=== PATIENT | female | born 1975 | race Hispanic/Latino ===

== ENCOUNTER 2017-08-16 21:34 | Emergency (ER) | payer BC ==
[~2017-08-16] VITALS: Ht 160 cm; Wt 96.2 kg
[2017-08-16] MEDS ORDERED: NIFEDIPINE 10 MG CAP PO ONE (22:00)
[2017-08-16] MEDS ORDERED: ASPIRIN 81 MG CHEW TAB PO ONE (22:00)
[2017-08-16 22:13] LABS: BASOPHILS # (AUTO) 0.1 (0.0-0.1); BASOPHILS % 0.8 % (0.0-1.0); EOSINOPHILS # (AUTO) 0.4 (0.0-0.4); EOSINOPHILS % 4.6 % (0.0-6.0); HEMATOCRIT 39.4 % (34.2-44.1); HEMOGLOBIN 12.7 g/dL (12.0-16.0); LYMPHOCYTES # (AUTO) 3.9 (1.0-3.2); LYMPHOCYTES % 42.7 % (18.0-39.1); MEAN CORPUSCULAR HEMOGLOBIN 25.4 pg (28-32); MEAN CORPUSCULAR HGB CONC 32.2 g/dL (31-35); MEAN CORPUSCULAR VOLUME 78.8 fL (81-99); MONOCYTES # (AUTO) 0.6 (0.2-0.8); MONOCYTES % 6.5 % (4.4-11.3); NEUTROPHILS # (AUTO) 4.2 (2.1-6.9); NEUTROPHILS % 45.3 % (38.7-80.0); PLATELET COUNT 332 x10e3/uL (140-360); RED CELL DISTRIBUTION WIDTH 13.6 % (11.7-14.4)
[2017-08-16 22:21] LABS: BILIRUBIN,URINE NEGATIVE (NEGATIVE); COLOR,URINE YELLOW (YELLOW); KETONES,URINE NEGATIVE (NEGATIVE); LEUKOCYTE ESTERASE ,URINE NEGATIVE (NEGATIVE); NITRITE,URINE NEGATIVE (NEGATIVE); PROTEIN,URINE DIPSTICK NEGATIVE (NEGATIVE); URINE UROBILINOGEN 0.2 mg/dL (0.2 - 1)
[2017-08-16 22:24] LABS: CLARITY,URINE SL CLOUDY (CLEAR)
[2017-08-16 22:26] LABS: AMPHETAMINES SCREEN,URINE NEGATIVE (NEGATIVE); BENZODIAZEPINES SCREEN,URINE NEGATIVE (NEGATIVE); PHENCYCLIDINE SCREEN,URINE NEGATIVE (NEGATIVE); PREGNANCY TEST, URINE NEGATIVE (NEGATIVE)
[2017-08-16 22:32] LABS: ALANINE AMINOTRANSFERASE 97 IU/L (0-55); ALBUMIN 3.7 g/dL (3.5-5.0); ALBUMIN/GLOBULIN RATIO 0.8 (0.8-2.0); ALKALINE PHOSPHATASE 108 IU/L (40-150); ANION GAP 14.4 mmol/L (8-16); BLOOD UREA NITROGEN 11 mg/dL (7-26); BUN/CREATININE RATIO 12 (6-25); CARBON DIOXIDE 23 mmol/L (22-29); CHLORIDE 104 mmol/L (98-107); CREATINE KINASE 37 IU/L (29-168); CREATININE, SERUM 0.89 mg/dL (0.57-1.11); EST GLOMERULAR FILTRATION RATE > 60 ML/MIN (60-); GLUCOSE 264 mg/dL (74-118); POTASSIUM 3.4 mmol/L (3.5-5.1); SODIUM 138 mmol/L (136-145)
[2017-08-16 22:40] LABS: EPITHELIAL CELLS,URINE FEW /LPF; MUCUS,URINE FEW (RARE); RBC,URINE 0-5 /HPF (0-5); WBC,URINE (MAN) 0-5 /HPF (0-5)
--- NOTE | 2017-08-16 22:40 | Diagnostic Imaging Report ---
EXAMINATION: CHEST SINGLE (PORTABLE) INDICATION: Chest pain COMPARISON: None FINDINGS: TUBES and LINES: None. LUNGS: Lungs are not well inflated. Lungs are clear. There is no evidence of pneumonia or pulmonary edema. PLEURA: No pleural effusion or pneumothorax. HEART AND MEDIASTINUM: The cardiomediastinal silhouette is unremarkable. BONES AND SOFT TISSUES: No acute osseous lesion. Soft tissues are unremarkable. UPPER ABDOMEN: No free air under the diaphragm. IMPRESSION: No acute thoracic abnormality. Signed by: Dr. Toby Cervantes M.D. on 08/16/2017 10:37 PM
[2017-08-16 23:02] LABS: FREE THYROXINE INDEX 2.3769 (1.4-3.8); THYROID STIMULATING HORMONE 7.524 uIU/mL (0.350-4.940)
[2017-08-16] MEDS ORDERED: CLONIDINE HCL 0.1 MG TAB PO ONE (23:45)
--- NOTE | 2017-08-17 00:36 | Diagnostic Imaging Report ---
EXAM: CT Chest WITH contrast 08/16/2017 11:35 PM INDICATION: Shortness of breath, pulmonary embolism COMPARISON: None TECHNIQUE: Chest was scanned utilizing a multidetector helical scanner from the lung apex through the level of the adrenal glands without administration of IV contrast. Coronal and sagittal reformations were obtained. Routine protocol was performed. IV CONTRAST: 100 mL of Isovue-300 RADIATION DOSE: Total DLP: 538.18 mGy*cm Estimated effective dose: (DLP x 0.014 x size factor) mSv COMPLICATIONS: None FINDINGS: LINES/ TUBES: None. LUNGS AND AIRWAYS: The lungs are unremarkable. Airways are normal. PLEURA: The pleural spaces are clear. HEART AND MEDIASTINUM: The thyroid gland is normal. No mediastinal, hilar or axillary lymphadenopathy. The heart is normal in size.. There is no pericardial effusion. UPPER ABDOMEN: Limited non-contrast views of the upper abdomen show no abnormality within the visualized spleen, pancreas, or kidneys. The adrenal glands are normal. Mild hepatic steatosis. BONES: The visualized bony thorax is within normal limits. SOFT TISSUES: Unremarkable. IMPRESSION: 1. No evidence of acute intrathoracic abnormality, specifically, no pulmonary embolism visualized. 2. Mild hepatic steatosis Signed by: Dr. Toby Cervantes M.D. on 08/17/2017 12:32 AM
[2017-08-17] MEDS ORDERED: CLONIDINE HCL 0.1 MG TAB PO ONE (01:00)
[2017-08-17] MEDS ORDERED: CLONIDINE HCL 0.1 MG TAB ONE (01:16)
[2017-08-17 02:52] VITALS: BP 171/101
[2017-08-17] MEDS ORDERED: SODIUM CHLORIDE 0.9% 50ML 50 ML ONE (04:51)
[2017-08-17] MEDS ORDERED: IOPAMIDOL 370 MG/ML 200 ML INFUS..BTL INJ ONE (04:52)
== END 2017-08-17 03:00 | disposition home or self-care (01) ==
LOC: ER 21:34
DX: R07.89 Other chest pain (principal); I10 Essential (primary) hypertension; E11.9 Type 2 diabetes mellitus without complications; Z82.49 Family history of ischemic heart disease and other diseases of the circulatory system
CPT/HCPCS: 36415; 71045; 71260; 80053; 80307; 81001; 81025; 82550; 82553; 84436; 84443; 84479; 84484; 85025; 85379; 87086; 93005; 99284; Q9967

== ENCOUNTER 2018-10-19 01:20 | Emergency (ER) | payer BC ==
[~2018-10-19] VITALS: Ht 160 cm; Wt 99.1 kg
--- OUTSIDE RECORDS SUMMARY | 2018-10-19 01:23 | XMS REPORT ---
[facility] Address Unknown Phone Unavailable Care Team Providers Care Science Faculty Member Name Role Phone UNKNOWN, REFFERING PP Unavailable [place] GARCIA Unavailable Unavailable [place] BARRIENTOS Unavailable Unavailable Payers Payer Name Policy Type Policy Number Effective Date Expiration Date Problems This patient has no known problems. Allergies, Adverse Reactions, Alerts Allergy Name Allergy Type Status Severity Reaction(s) Onset Date Inactive Date Treating Clinician Comments No Known Allergies DA Active U 2013-08-16 00:00:00 Medications This patient has no known medications. Encounters Start Date/Time End Date/Time Encounter Type Admission Type Attending Clinicians Care Facility Care Department Encounter ID 2017-08-23 10:42:00 2017-08-23 10:42:00 Emergency E [facility] GARCIA [facility] MED [id number] Results Test Description Test Time Test Comments Text Results Atomic Results Result Comments LIPID PROFILE (CORONARY RISK) 2018-10-12 05:56:00 TRIGLYCERIDES (test code=TRIG) 109 mg/dL 20-150 CHOLESTEROL (test code=CHOL) 180 mg/dL 0-200 CHOLESTEROL/HDL RATIO (test code=CHOLHDL) 3.0 RATIO 0-4.9 RISK ASSOCIATED WITH CHOL/HDL RATIOS: Risk Male Female1/2 AVERAGE 3.43 3.27AVERAGE 4.97 4.442X AVERAGE 9.55 7.053X AVERAGE 23.39 11.04 REFERENCE VALUE IS RELATED TO RISK LEVELS ASRECOMMENDED BY THE DONNY. HEART, LUNG, AND BLOOD INST. HDL CHOLESTEROL (test code=HDL) 48 mg/dL 40-60 LIPOPROTEIN LDL (test code=LDL) 94 mg/dL 100-129 Reference Interval: mg/dL mmol/L Optimal <100 <2.6Near/above optimal 100-129 2.6- 3.3Borderline High 130-159 3.4-4.1High 160-189 4.1-4.9Very High >=190 >=4.9=========This LDL result is a direct measurement.========= [id number] 05:29:00* Test Item Value Reference Range Comments GLYCOSYLATED HEMOGLOBIN (HA1C) (test code=GLYHGB) 8.7 % HbA1 4.8-6.0 ESTIMATED AVERAGE GLUCOSE (test code=EAG) 203 MG/DL [id number] 05:29:00* Test Item Value Reference Range Comments TROPONIN-I (test code=TROPI) <0.015 ng/mL 0-0.045 COMMENTS TO CARDIAC SURGEON: COLLECT 3 HOURS AFTER PREVIOUS [id number] 02:07:00* Test Item Value Reference Range Comments TROPONIN-I (test code=TROPI) <0.015 ng/mL 0-0.045 COMMENTS TO CARDIAC SURGEON: COLLECT 3 HOURS AFTER PREVIOUS SAMPLE- XR CHEST 1 [id number] 17:48:00 Name: CAITLYN ALANIS [facility] : 1975 Age/S:42 /F [address] [facility] Unit#:[id number] Loc: [place] [address] Phys: Cecelia Chisholm MD Dis Date: PHONE #: [phone] Status: REG ER FAX #: [phone] Exam Date: 10/11/2018 Reason: CHEST PAIN EXAMS: CPT CODE: [id number] XR CHEST 1 V [id number] REASON FOR EXAM: CHEST PAIN EXAM ORDER DATE: 10/11/2018 4:57 PM Ordering Halima: Cecelia Chisholm MD PROCEDURE: - XR CHEST 1 V COMPARISON: FINDINGS: Portable AP frontal view of the chest obtained at 5:34 PM shows clear lungs without evidence of consolidation. There is no evidence of effusion. The heart size is within normal limits. Pulmonary vasculatures are unremarkable. IMPRESSION: No active disease. at 1748 Reported and signed by: Edwin La M.D. CC: Cecelia Chisholm MD Technologist: MARIAN WILLIS, RT(R),CT Trnscrpt Data: 10/11/2018 (174 [id number]) t.SDR.VTL Orig Print D/T: S: 10/11/2018 ([id number]) PAGE 1 Signed Report URINALYSIS [id number] 17:45:00* Test Item Value Reference Range Comments UA COLOR (test code=COLU) LIGHT YELLOW YELLOW UA APPEARANCE (test code=APPU) CLEAR CLEAR UA GLUCOSE DIPSTICK (test code=DGLUU) 1000 (3+) mg/dL NEGATIVE UA BILIRUBIN DIPSTICK (test code=BILU) NEGATIVE mg/dL NEGATIVE UA KETONE DIPSTICK (test code=KETU) neg mg/dL NEGATIVE UA SPECIFIC GRAVITY (test code=SGU) 1.015 1.001-1.035 UA BLOOD DIPSTICK (test code=KATHRYN) 25 (1+) Yousif/uL NEGATIVE UA PH DIPSTICK (test code=FAVIO) 5.0 5.0-8.0 UA PROTEIN DIPSTICK (test code=PROU) neg mg/dL Neg-15 UA UROBILINIOGEN DIPSTICK (test code=URO) norm mg/dL 0.0-0.2 UA NITRITE DIPSTICK (test code=JOSH) NEGATIVE NEGATIVE UA LEUKOCYTE ESTERASE DIPSTICK (test code=LEUU) neg uL NEGATIVE UA WBC (test code=WBCU) NONE SEEN per HPF 0-5 IN SOME URINARY TRACT INFECTIONS THERE MAY NOT BE ENOUGHWBCs IN THE URINE TO TRIGGER AN AUTOMATIC (REFLEX) URINECULTURE. A SEPERATE ORDER FOR URINE CULTURE IS RECOMMENDEDIF THERE IS STRONG SUPPORT FOR A URINARY TRACT INFECTIONCLINICALLY. UA RBC (test code=RBCU) 0-2 per HPF 0-5 UA EPITHELIAL CELLS (test code=EPIU) Few (2-5/hpf) per HPF Few UA BACTERIA (test code=BACU) TRACE per HPF NONE Urine Source? Clean CatchDRUGS OF ABUSE SCREEN [id number] 17:45:00* Test Item Value Reference Range Comments URN COCAINE (test code=COCAURN) NEGATIVE NEGATIVE URN CANNABINOIDS (test code=CANNABURN) NEGATIVE NEGATIVE URN AMPHETAMINE (test code=AMPHETURN) NEGATIVE NEGATIVE URN BARBITURATE (test code=BARBITURN) NEGATIVE NEGATIVE URN BENZODIAZEPINE (test code=BENZOURN) NEGATIVE NEGATIVE URN OPIATES (test code=OPIATURN) NEGATIVE NEGATIVE URN PHENCYCLIDINE (PCP) (test code=PHENCURN) NEGATIVE NEGATIVE Urine Source? Clean CatchURINALYSIS [id number] 17:39:00* Test Item Value Reference Range Comments UA COLOR (test code=COLU) LIGHT YELLOW YELLOW UA APPEARANCE (test code=APPU) CLEAR CLEAR UA GLUCOSE DIPSTICK (test code=DGLUU) 1000 (3+) mg/dL NEGATIVE UA BILIRUBIN DIPSTICK (test code=BILU) NEGATIVE mg/dL NEGATIVE UA KETONE DIPSTICK (test code=KETU) neg mg/dL NEGATIVE UA SPECIFIC GRAVITY (test code=SGU) 1.015 1.001-1.035 UA BLOOD DIPSTICK (test code=KATHRYN) 25 (1+) Yousif/uL NEGATIVE UA PH DIPSTICK (test code=FAVIO) 5.0 5.0-8.0 UA PROTEIN DIPSTICK (test code=PROU) neg mg/dL Neg-15 UA UROBILINIOGEN DIPSTICK (test code=URO) norm mg/dL 0.0-0.2 UA NITRITE DIPSTICK (test code=JOSH) NEGATIVE NEGATIVE UA LEUKOCYTE ESTERASE DIPSTICK (test code=LEUU) neg uL NEGATIVE UA WBC (test code=WBCU) NONE SEEN per HPF 0-5 IN SOME URINARY TRACT INFECTIONS THERE MAY NOT BE ENOUGHWBCs IN THE URINE TO TRIGGER AN AUTOMATIC (REFLEX) URINECULTURE. A SEPERATE ORDER FOR URINE CULTURE IS RECOMMENDEDIF THERE IS STRONG SUPPORT FOR A URINARY TRACT INFECTIONCLINICALLY. UA RBC (test code=RBCU) 0-2 per HPF 0-5 UA EPITHELIAL CELLS (test code=EPIU) Few (2-5/hpf) per HPF Few UA BACTERIA (test code=BACU) TRACE per HPF NONE Urine Source? Clean CatchDRUGS OF ABUSE SCREEN [id number] 17:39:00* Test Item Value Reference Range Comments URN COCAINE (test code=COCAURN) NEGATIVE URN CANNABINOIDS (test code=CANNABURN) NEGATIVE URN AMPHETAMINE (test code=AMPHETURN) NEGATIVE URN BARBITURATE (test code=BARBITURN) NEGATIVE URN BENZODIAZEPINE (test code=BENZOURN) NEGATIVE URN OPIATES (test code=OPIATURN) NEGATIVE URN PHENCYCLIDINE (PCP) (test code=PHENCURN) NEGATIVE Urine Source? Clean CatchURINALYSIS [id number] 17:31:00* Test Item Value Reference Range Comments UA COLOR (test code=COLU) LIGHT YELLOW YELLOW UA APPEARANCE (test code=APPU) CLEAR CLEAR UA GLUCOSE DIPSTICK (test code=DGLUU) 1000 (3+) mg/dL NEGATIVE UA BILIRUBIN DIPSTICK (test code=BILU) NEGATIVE mg/dL NEGATIVE UA KETONE DIPSTICK (test code=KETU) neg mg/dL NEGATIVE UA SPECIFIC GRAVITY (test code=SGU) 1.015 1.001-1.035 UA BLOOD DIPSTICK (test code=KATHRYN) 25 (1+) Yousif/uL NEGATIVE UA PH DIPSTICK (test code=FAVIO) 5.0 5.0-8.0 UA PROTEIN DIPSTICK (test code=PROU) neg mg/dL Neg-15 UA UROBILINIOGEN DIPSTICK (test code=URO) norm mg/dL 0.0-0.2 UA NITRITE DIPSTICK (test code=JOSH) NEGATIVE NEGATIVE UA LEUKOCYTE ESTERASE DIPSTICK (test code=LEUU) neg uL NEGATIVE UA WBC (test code=WBCU) per HPF 0-5 Urine Source? Clean CatchDRUGS OF ABUSE SCREEN [id number] 17:31:00* Test Item Value Reference Range Comments URN COCAINE (test code=COCAURN) NEGATIVE URN CANNABINOIDS (test code=CANNABURN) NEGATIVE URN AMPHETAMINE (test code=AMPHETURN) NEGATIVE URN BARBITURATE (test code=BARBITURN) NEGATIVE URN BENZODIAZEPINE (test code=BENZOURN) NEGATIVE URN OPIATES (test code=OPIATURN) NEGATIVE URN PHENCYCLIDINE (PCP) (test code=PHENCURN) NEGATIVE Urine Source? Clean CatchBASIC METABOLIC [id number] 17:30:00* Test Item Value Reference Range Comments SODIUM (test code=NA) 135 mmol/L 135-148 POTASSIUM (test code=K) 3.3 mmol/L 3.5-5.1 CHLORIDE (test code=CL) 101 mmol/L 101-109 CARBON DIOXIDE (test code=CO2) 23.6 mmol/L 21-32 ANION GAP (test code=GAP) 14 mmol/L 10-20 GLUCOSE (test code=GLU) 164 mg/dL 74-106 BLOOD UREA NITROGEN (test code=BUN) 15 mg/dL 3-21 GLOMERULAR FILTRATION RATE (test code=GFR) > 60 mL/min >=60 Estimated GFR by using Modified MDRD formula.Chronic kidney disease is defined as either kidney damageor GFR <60 mL/min/1.73 m2 for >3 months. CREATININE (test code=CREAT) 0.83 mg/dL 0.55-1.3 BUN/CREATININE RATIO (test code=BUN/CREA) 18.1 10-20 CALCIUM (test code=CA) 8.9 mg/dL 8.4-10.2 HEPATIC FUNCTION [id number] 17:30:00* Test Item Value Reference Range Comments TOTAL PROTEIN (test code=PROT) 8.3 g/dL 6.5-8.4 ALBUMIN (test code=ALB) 3.5 g/dL 3.4-4.8 GLOBULIN (test code=GLOB) 4.8 G/DL 1-10 ALBUMIN/GLOBULIN RATIO (test code=A/G) 0.7 RATIO 0.75-1.50 BILIRUBIN TOTAL (test code=BILT) 0.40 mg/dL 0.0-1.0 BILIRUBIN DIRECT (test code=BILD) 0.10 mg/dL 0.0-0.30 SGOT/AST (test code=AST) 35 U/L 6-32 SGPT/ALT (test code=ALT) 96 U/L 12-78 Note: Change in REFERENCE RANGE due to new reagent method. ALKALINE PHOSPHATASE TOTAL (test code=ALKP) 72 U/L 38-126 [id number] 17:30:00* Test Item Value Reference Range Comments LIPASE (test code=LIP) 144 U/L 128-270 [id number] 17:30:00* Test Item Value Reference Range Comments MAGNESIUM (test code=MAG) 1.8 mg/dL 1.6-2.3 CPK-MB [id number] 17:30:00* Test Item Value Reference Range Comments CREATINE KINASE (CK) (test code=CK) 31 U/L 26-192 CKMB (test code=CKMBT) <0.5 ng/mL 0.0-5.0 RELATIVE % INDEX (test code=REL%) 1.6 % [id number] 17:30:00* Test Item Value Reference Range Comments TROPONIN-I (test code=TROPI) <0.015 ng/mL 0.00-0.056 B-TYPE NATRIURETIC [id number] 17:24:00* Test Item Value Reference Range Comments B-TYPE NATRIURETIC PEPTIDE (test code=BNP) < 5.0 pg/mL 0-100 PROTHROMBIN [id number] 17:24:00* Test Item Value Reference Range Comments PROTHROMBIN TIME PATIENT (test code=PTP) 9.9 seconds 9.0-13.0 INTERNATIONAL NORMAL RATIO (test code=INR) 0.9 0.8-1.2 The therapeutic range for oral anticoagulant therapy formost indications is an international normalized ratio (INR)of between 2.0 and 3.0. The recommended therapeutic INRrange for various clinical situations is listed below: Clinical Situation INR range Pulmonary e mbolism treatment (2.0-3.0)Venous thrombosis treatmentVenous thrombosis prophylaxis (high risk surgery)Prevention of systemic embolism from: Acute myocardial infarction Valvular heart disease Atrial fibrillation Mechanical prosthetic heart valves (2.5-3.5) IS PATIENT ON ANTICOAGULANTS? [id number] 17:24:00* Test Item Value Reference Range Comments D-DIMER (test code=DDIMER) 327 ng/ml < 600 IS PATIENT ON ANTICOAGULANTS? NBASIC METABOLIC [id number] 17:18:00* Test Item Value Reference Range Comments SODIUM (test code=NA) 135 mmol/L 135-148 POTASSIUM (test code=K) 3.3 mmol/L 3.5-5.1 CHLORIDE (test code=CL) 101 mmol/L 101-109 CARBON DIOXIDE (test code=CO2) 23.6 mmol/L 21-32 ANION GAP (test code=GAP) 14 mmol/L 10-20 GLUCOSE (test code=GLU) 164 mg/dL 74-106 BLOOD UREA NITROGEN (test code=BUN) 15 mg/dL 3-21 GLOMERULAR FILTRATION RATE (test code=GFR) > 60 mL/min >=60 Estimated GFR by using Modified MDRD formula.Chronic kidney disease is defined as either kidney damageor GFR <60 mL/min/1.73 m2 for >3 months. CREATININE (test code=CREAT) 0.83 mg/dL 0.55-1.3 BUN/CREATININE RATIO (test code=BUN/CREA) 18.1 10-20 CALCIUM (test code=CA) 8.9 mg/dL 8.4-10.2 HEPATIC FUNCTION [id number] 17:18:00* Test Item Value Reference Range Comments TOTAL PROTEIN (test code=PROT) gram/dL 6.4-8.2 ALBUMIN (test code=ALB) g/dL 3.4-5.0 GLOBULIN (test code=GLOB) g/dL 2.7-4.2 ALBUMIN/GLOBULIN RATIO (test code=A/G) 0.75-1.50 BILIRUBIN TOTAL (test code=BILT) mg/dL 0.2-1.2 BILIRUBIN DIRECT (test code=BILD) mg/dL 0.0-0.20 SGOT/AST (test code=AST) IUnit/L 15-37 SGPT/ALT (test code=ALT) U/L 10-69 ALKALINE PHOSPHATASE TOTAL (test code=ALKP) IUnit/L 45-117 [id number] 17:18:00* Test Item Value Reference Range Comments LIPASE (test code=LIP) Unit/L 144-286 [id number] 17:18:00* Test Item Value Reference Range Comments MAGNESIUM (test code=MAG) mg/dL 1.8-2.4 CPK-MB [id number] 17:18:00* Test Item Value Reference Range Comments CREATINE KINASE (CK) (test code=CK) IUnit/L 26-208 CKMB (test code=CKMBT) ng/mL 0-6.0 RELATIVE % INDEX (test code=REL%) % [id number] 17:18:00* Test Item Value Reference Range Comments TROPONIN-I (test code=TROPI) ng/mL 0-0.045 PROTHROMBIN [id number] 17:18:00* Test Item Value Reference Range Comments PROTHROMBIN TIME PATIENT (test code=PTP) 9.9 seconds 9.0-13.0 INTERNATIONAL NORMAL RATIO (test code=INR) 0.9 0.8-1.2 The therapeutic range for oral anticoagulant therapy formost indications is an international normalized ratio (INR)of between 2.0 and 3.0. The recommended therapeutic INRrange for various clinical situations is listed below: Clinical Situation INR range Pulmonary e mbolism treatment (2.0-3.0)Venous thrombosis treatmentVenous thrombosis prophylaxis (high risk surgery)Prevention of systemic embolism from: Acute myocardial infarction Valvular heart disease Atrial fibrillation Mechanical prosthetic heart valves (2.5-3.5) IS PATIENT ON ANTICOAGULANTS? [id number] 17:18:00* Test Item Value Reference Range Comments D-DIMER (test code=DDIMER) ng/ml < 600 IS PATIENT ON ANTICOAGULANTS? NCBC W/O [id number] 17:07:00* Test Item Value Reference Range Comments WHITE BLOOD CELL (test code=WBC) 8.5 K/mm3 4.5-12.5 RED BLOOD CELL (test code=RBC) 5.15 mill/mm3 3.7-5.2 HEMOGLOBIN (test code=HGB) 12.5 gram/dL 11.5-15.5 HEMATOCRIT (test code=HCT) 38.6 % 36.0-46.0 MEAN CELL VOLUME (test code=MCV) 75.0 fL 80-98 MEAN CELL HGB (test code=MCH) 24.3 picogram 27.0-33.0 MEAN CELL HGB CONCETRATION (test code=MCHC) 32.4 gram/dL 33.0-36.0 RED CELL DISTRIBUTION WIDTH (test code=RDW) 15.0 % 11.6-16.2 RED CELL DISTRIBUTION WIDTH SD (test code=RDW-SD) 40.2 fL 39.1-52.0 PLATELET COUNT (test code=PLT) 370 K/mm3 150-450 MEAN PLATELET VOLUME (test code=MPV) 9.9 fL 6.7-11.0 Influenza B [id number] 13:05:00Specimen: NasalCollected: 08/23/2017 12:30 Status: Final Last Updated: 08/23/2017 13:05 (1) ER Bed 17 Influenza B Ag (Final) (Final) Negative for Flu B protein antigen FLU COMMENT 1 (Final) (Final) A negative test result does not exclude infection with influenza Aor B. Flu A or B antigen in the sample may be below the detection limitof the test. Culture of negative samples is recommended. Influenza A [id number] 13:04:00Specimen: NasalCollected: 08/23/2017 12:30 Status: Final Last Updated: 08/23/2017 13:04 (1) ER Bed 17 Influenza A Ag (Final) (Final) Negative for Flu A protein antigen FLU COMMENT 1 (Final) (Final) A negative test result does not exclude infection with influenza Aor B. Flu A or B antigen in the sample may be below the detection limitof the test. Culture of negative samples is recommended. D- Dimer, [id number] 13:00:00* Test Item Value Reference Range Comments D-Dimer, Quant (test code=DDQNT) 360 ng/mL 0-500 Please note Change in unit of measure from mg/L FEU to ng/mLA cutoff of less than 500 ng/mL DD has a negative predictive value of100% for DVT nye053% for PE.When using D-Dimer to help rule out DVT or PE, clinical information anddisease probability should be considered.Elevated D-Dimer values are not specific for thromboembolism. Troponin [id number] 12:17:00* Test Item Value Reference Range Comments Troponin T (test code=NITA) <0.010 ng/mL 0.000-0.090 CK [id number] 12:17:00* Test Item Value Reference Range Comments CK (test code=CK) 34 U/L 26-192 CK [id number] 12:17:00* Test Item Value Reference Range Comments CK (test code=CK) 34 U/L 26-192 CKMB (test code=CKMB) <1.0 ng/mL 0.0-2.8 CKMB% (test code=CKMBP) No Calc % 0.0-3.4 Unable to calculate due to one or more values out of test measurement range. Comprehensive Metabolic [id number] 12:17:00* Test Item Value Reference Range Comments Sodium (test code=NA) 138 mmol/L 135-145 Potassium (test code=K) 3.6 mmol/L 3.5-5.1 Chloride (test code=CL) 98 mmol/L 98-105 Carbon Dioxide (test code=CO2) 25 mmol/L 22-29 Glucose (test code=GLU) 185 mg/dL 70-115 Blood Urea Nitrogen (test code=BUN) 19 mg/dL 6-20 Creatinine (test code=CREAT) 0.9 mg/dL 0.5-0.9 Calcium (test code=CA) 9.5 mg/dL 8.3-10.5 Prot Total (test code=TP) 8.3 g/dL 6.4-8.3 Albumin (test code=ALB) 4.3 g/dL 3.5-5.2 A/G Ratio (test code=AGRATIO) 1.1 Ratio Globulin (test code=GLOB) 4.0 2.9-3.1 Bili Total (test code=TBIL) 0.7 mg/dL 0.1-0.9 Alk Phos (test code=APHOS) 73 U/L 35-104 AST (test code=AST) 64 U/L 1-32 ALT (test code=ALT) 88 U/L 1-33 BUN/Creatinine Ratio (test code=BCRATIO) 21.1 Anion Gap (test code=AGAP) 15 mmol/L 7-16 Estimated GFR (test code=GFR) >60 mL/min/1.73m2 eGFR (estimated Glomerular Filtration Rate) is an estimated value,calculated from the patient's serum creatinine using the MDRD equation.It is NOT the patient's actual GFR. The eGFR provides a more clinicallyuseful measure of kidney disease than serum creatinine alone.This calculation takes sex and race into account, if the informationis provided. If the race is not provided, and the patient isAfrican-Turkish, multiply by 1.212. If sex is not provided, and thepatient is female, multiply by 0.742. Results for patients <18 years ofage have not been validated by the MDRD study and should be interpretedwith caution.eGFR Result Interpretation:eGFR > or=60 is in the Normal RangeeGFR < 60 may mean kidney diseaseeGFR < 15 may mean kidney failureRanges recommended by the National Kidney Foundat ion,http://nkdep.nih.gov CBC with [id number] 12:14:00* Test Item Value Reference Range Comments WBC (test code=WBC) 7.9 K/cumm 4.4-10.5 RBC (test code=RBC) 4.98 M/cumm 3.75-5.20 Hemoglobin (test code=HGB) 12.6 gm/dL 12.2-14.8 Hematocrit (test code=HCT) 39.7 % 36.5-44.4 MCV (test code=MCV) 79.8 fL 80-100 MCH (test code=MCH) 25.3 pg 27.0-32.5 MCHC (test code=MCHC) 31.7 g/dL 32.0-37.5 RDW (test code=RDW) 13.5 % 11.5-14.5 Platelet Count (test code=PLTCT) 337 K/cumm 140-440 MPV (test code=MPV) 9.4 fL Diff Method (test code=DIFFM) Auto Neutrophil (test code=NEUT) 57.9 % 36-70 Lymphocyte (test code=LYMPH) 33.0 % 12-44 Monocyte (test code=MONO) 3.7 % 0-11 Eosinophil (test code=EOS) 4.5 % 0-7 Basophil (test code=BASO) 1.0 % 0-2 Neutro Abs (test code=ANEUT) 4.6 K/cumm 1.6-7.4 Lymph Abs (test code=ALYMPH) 2.6 K/cumm 0.5-4.6 [place] Abs (test code=AMONO) 0.3 K/cumm 0.0-1.2 Eos Abs (test code=AEOS) 0.36 K/cumm 0.00-0.74 Baso Abs (test code=ABASO) 0.1 K/cumm 0.00-0.21 XR CHEST 1 [id number] 11:17:52EXAM: Portable AP chest x-rayLOCATION: R16 INDICATION: Chest painCOMPARISON: NoneFINDINGS:The cardiomediastinal silhouette is unremarkable. There is no focalconsolidation. There is no pleural effusion or pneumothorax. IMPRESSION:No acute cardiopulmonary disease.CT CHEST [address] [place] [address] Patient Name: CAITLYN ALANIS MR #: [id number] : 1975 Age/Sex: 41/F Req #: [id number] Adm Physician: Ordered by: MACARIO BARRIENTOS MD Report #: [id number] Location: ER Room/ Bed: Procedure: [id number] CT/CT CHEST W Exam Date: 0 08/16/17 Exam Time: 2345 REPORT STATUS: Signed EXAM: CT Chest WITH contrast 08/16/2017 11:35 PM INDICATION: Shortness of aneesh th, pulmonary embolism COMPARISON: None TECHNIQUE: Chest was scanned util izing a multidetector helical scanner from the lung apex through the level of the adrenal glands without administration of IV contrast. Coronal and sagittal reformations were obtained. Routine protocol was performed. IV C ONTRAST: 100 mL of Isovue-300 RADIATION DOSE: Total DLP: 538.18 mGy *cm Estimated effective dose: (DLP x 0.014 x size factor) mSv COMPLICATIONS: None FINDINGS: LINES/ TUBES: None. LUNGS AND AIRWAYS: The lungs are unremarkable. Airways are normal. PLEURA: The pleural spaces are clear. HEART AND MEDIASTINUM: The thyroid gland is timmy l. No mediastinal, hilar or axillary lymphadenopathy. The heart is normal in size.. There is no pericardial effusion. UPPER ABDOMEN: Limited non- contrast views of the upper abdomen show no abnormality within the visualized spleen, pancreas, or kidneys. The adrenal glands are normal. Mild hepatic lauro atosis. BONES: The visualized bony thorax is within normal limits. SOF T TISSUES: Unremarkable. IMPRESSION: 1. No evidence of acute intrathora cic abnormality, specifically, no pulmonary embolism visualized. 2. 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 Toby Cervantes M.D. on 08/17/2017 12:32 AM Dictated By: TOBY VILLALBA MD Transcribed By: CASIMIRO on 08/17/1731 CO PY TO: MACARIO ABRRIENTOS MD CHEST SINGLE (PORTABLE) [place] [address] Patient Name: CAITLYN ALANIS MR #: [id number] : 1975 Age/Sex: 41/F Req #: [id number] Adm Physician: Ordered by: MACARIO BARRIENTOS MD Report #: [id number] Location: ER Room/ Bed: Procedure: [id number] DX/CHEST SINGLE (PORTABLE) Exam Date: 08/16/17 Exam Time: 0 REPORT STA TUS: Signed EXAMINATION: CHEST SINGLE (PORTABLE) INDICATION: Chest pain COMPARISON: None FINDINGS: TUBES and LINES: N one. LUNGS: Lungs are not well inflated. Lungs are clear. There is no e vidence of pneumonia or pulmonary edema. PLEURA: No pleural effusion or pneumothorax. HEART AND MEDIASTINUM: The cardiomediastinal silhouette is u nremarkable. BONES AND SOFT TISSUES: No acute osseous lesion. Soft ti ssues are unremarkable. UPPER ABDOMEN: No free air under the diaphragm. IMPRESSION: No acute thoracic abnormality. Signed by: Dr. Toby Cervantes M.D. on 08/16/2017 10:37 PM Dictated By: TOBY VILLALBA MD 36 Transcribed By: CASIMIRO on 08/16/172236 COPY TO: MACARIO BARRIENTOS MD
--- OUTSIDE RECORDS SUMMARY | 2018-10-19 01:23 | XMS REPORT | Clinical Summary ---
Author Author [facility] Address Unknown Phone Unavailable Care Team Providers Care Business Transformation Manager Name Role Phone Sheela Price PCP Unavailable Allergies No Known Allergies Medications End Date Status Medication Sig Dispensed Refills Start Date Active lisinopril-hydrochlorothi Take 1 tablet 0 azide by mouth (PRINZIDE,ZESTORETIC) daily. 20-12.5 mg per tablet Active methylPREDNISolone Take the 1 Package 0 (MEDROL DOSEPACK) 4 mg steroid pack 4 tablet as package instructs Active Problems Not on file Social History Date Tobacco Use Types Packs/Day Years Used Never Smoker Alcohol Use Drinks/Week oz/Week Comments No Sex Assigned at Date Recorded Not on file Industry Job Start Date Occupation Not on file Not on file Not on file Travel End Travel History Travel Start No recent travel history available. Last Filed Vital Signs Not on file Plan of Treatment Not on file Results Not on fileafter 10/18/2017
--- OUTSIDE RECORDS SUMMARY | 2018-10-19 01:23 | XMS REPORT | Clinical Summary ---
Author Author [facility] Organization [facility] Address Unknown Phone Unavailable Care Team Providers Care Applications Support Analyst Name Role Phone Jory Landry MD PCP Unavailable Allergies No Known Allergies Medications End Date Status Medication Sig Dispensed Refills Start Date Active blood-glucose meter Please 1 each 0 miscIndications: Type 2 provide 8 diabetes mellitus without meter, test complication, without strips and long-term current use of lancets to insulin ([facility]) check sugars TID. Active ergocalciferol (VITAMIN TAKE 1 13 capsule 2 D2) 50,000 unit capsule CAPSULE BY 8 MOUTH 1 TIME A WEEK FOR 12 DOSES Active amLODIPine (NORVASC) 10 Take 1 tablet 90 tablet 1 mg tabletIndications: (10 mg total) 8 Essential hypertension by mouth daily. Active dapagliflozin-metformin Take 1 tablet 90 each 1 10-1,000 mg tablet, IR & by mouth 8 ER, biphasic daily for 90 24hrIndications: Type 2 days. diabetes mellitus without complication, without long-term current use of insulin ([facility]) 06/27/2019 Active levothyroxine (SYNTHROID, Take 1 tablet 90 tablet 1 LEVOXYL) 150 mcg (150 mcg 8 tabletIndications: Type 2 total) by diabetes mellitus without mouth every complication, without morning. long-term current use of insulin ([facility]), Acquired hypothyroidism 09/23/2019 Active olmesartan-hydrochlorothi Take 1 tablet 90 tablet 0 azide (BENICAR HCT) 40-25 by mouth 9 mg per tablet daily. 12/21/2017 Discontinued losartan-hydrochlorothiaz Take 1 tablet 90 tablet 0 umer (HYZAAR) 100-25 mg by mouth 8 per tabletIndications: daily. Essential hypertension 12/21/2017 Discontinued metFORMIN (GLUCOPHAGE) Take 1 tablet 180 tablet 0 1,000 mg (1,000 mg 8 tabletIndications: Type 2 total) by diabetes mellitus without mouth 2 (two) complication, without times a day long-term current use of with meals. insulin ([facility]) 12/21/2017 Discontinued dapagliflozin (FARXIGA) 5 Take 1 tablet 90 tablet 0 08/30/ mg tabletIndications: (5 mg total) 8 Type 2 diabetes mellitus by mouth without complication, daily with without long-term current breakfast. use of insulin ([facility]) 12/21/2017 Discontinued amLODIPine (NORVASC) 10 Take 1 tablet 90 tablet 0 mg tabletIndications: (10 mg total) 8 Essential hypertension, by mouth Type 2 diabetes mellitus daily. without complication, without long-term current use of insulin ([facility]) 12/24/2017 Discontinued levothyroxine (SYNTHROID, Take 137 mcg 90 tablet 0 LEVOXYL) 137 mcg by mouth 8 tabletIndications: Type 2 every diabetes mellitus without morning. complication, without long-term current use of insulin ([facility]), Acquired hypothyroidism 04/03/2018 Discontinued amLODIPine (NORVASC) 10 Take 1 tablet 90 tablet 0 mg tabletIndications: (10 mg total) 8 Essential hypertension by mouth daily. 01/08/2018 Discontinued losartan-hydrochlorothiaz Take 1 tablet 90 tablet 0 umer (HYZAAR) 100-25 mg by mouth 8 per tabletIndications: daily. Essential hypertension 04/03/2018 Discontinued dapagliflozin-metformin Take 1 tablet 90 each 0 10-1,000 mg tablet, IR & by mouth 8 ER, biphasic daily for 90 24hrIndications: Type 2 days. diabetes mellitus without complication, without long-term current use of insulin ([facility]) 04/03/2018 Discontinued levothyroxine (SYNTHROID, Take 1 tablet 90 tablet 0 LEVOXYL) 150 mcg (150 mcg 8 tabletIndications: Type 2 total) by diabetes mellitus without mouth every complication, without morning. long-term current use of insulin ([facility]), Acquired hypothyroidism 12/25/2017 Discontinued ergocalciferol (VITAMIN Take 1 4 capsule 2 D2) 50,000 unit capsule capsule 8 (50,000 Units total) by mouth once a week for 12 doses. 04/03/2018 Discontinued losartan-hydrochlorothiaz Take 1 tablet 90 tablet 0 umer (HYZAAR) 100-25 mg by mouth 8 per tabletIndications: daily. Essential hypertension 06/27/2018 Discontinued amLODIPine (NORVASC) 10 Take 1 tablet 90 tablet 0 mg tabletIndications: (10 mg total) 8 Essential hypertension by mouth daily. 06/27/2018 Discontinued levothyroxine (SYNTHROID, Take 1 tablet 90 tablet 0 LEVOXYL) 150 mcg (150 mcg 8 tabletIndications: Type 2 total) by diabetes mellitus without mouth every complication, without morning. long-term current use of insulin (HCC), Acquired hypothyroidism 06/27/2018 Discontinued losartan-hydrochlorothiaz Take 1 tablet 90 tablet 0 umer (HYZAAR) 100-25 mg by mouth 8 per tabletIndications: daily. Essential hypertension 06/27/2018 Discontinued dapagliflozin-metformin Take 1 tablet 90 each 1 10-1,000 mg tablet, IR & by mouth 8 ER, biphasic daily for 90 24hrIndications: Type 2 days. diabetes mellitus without complication, without long-term current use of insulin (HCC) 09/23/2018 Discontinued losartan-hydrochlorothiaz Take 1 tablet 90 tablet 1 umer (HYZAAR) 100-25 mg by mouth 8 per tabletIndications: daily. Essential hypertension Active Problems Problem Noted Date HLD (hyperlipidemia) 12/24/2017 Overview: The 10-year ASCVD risk score (Charles MELINDA Jr., et al., 2013) is: 1.4% Values used to calculate the score: Age: 41 years Sex: Female Is Non- : No Diabetic: Yes Tobacco smoker: No Systolic Blood Pressure: 141 mmHg Is BP treated: No HDL Cholesterol: 48 mg/dL Total Cholesterol: 182 mg/dL D/w pt goals for low cholesterol for diabetics - she has been more careful with her eating L ast Assessment & Plan: Defer lipid medications as patient committed to lifestyle changes. Lipids will be reassessed in 6 months. Vitamin D deficiency 12/24/2017 Overview: Sent supplements 12/24 Abnormal LFTs 12/24/2017 Overview: Working on weight loss; thought to be s/s to fatty liver Lab Results Component Value Date ALT 70 (H) 12/21/2017 AST 51 (H) 12/21/2017 ALKPHOS 62 12/21/2017 BILITOT 0.8 12/21/2017 L ast Assessment & Plan: D/w pt low carb and sugar diet. Acquired hypothyroidism 08/31/2017 Overview: Acquired hypothyroidism - levothyroxine 150 mg Not having any complaints; does have excessive facial hair; no weight loss ; no constipation Lab Results Component Value Date TSH 2.14 04/03/2018 L ast Assessment & Plan: Check tFTs and adjust accordingly. Type 2 diabetes mellitus without complication 11/18/2015 Overview: Previous A1c - 10.4 - 8.7 - still waiting for new A1c FSBG Range - she had issues with her glucose meter she was not able to get a new meter Diet: Improved - cut back soda's has been under a lot of stress and eating fast food these past 2 weeks LDL < 100 - not on statin - awaiting lipid panel Blood pressure < 130/80 - no Diabetic Eye Exam: done 08/2016 - no DR On baby ASA: yes Foot exam: intact pulses, normal sensation Proteinuria: none L ast Assessment & Plan: Will check A1c today and reminded patient to get preclinic labs done before next apt. Labs placed after results come in. D/W to continue on farxiga in addition to low carb no sugar diet. Discussed all labs, medications, importance of diet, exercise, getting to ideal body weight, issues with medications and diabetes, risks of renal and ophthomoligic complications, importance of normal glucose, A1c, and regular visits. Stressed the importance of annual eye and exams and foot and shoe check. 1. Rx changes: none 2. Education: Reviewed ABCs of diabetes management (respective goals in parentheses): A1C (<7), blood pressure (<130/80), and cholesterol (LDL <100). - flu shot given. Essential hypertension 09/14/2011 Overview: Essential hypertension - uncontrolled - stopped clonidine last visit; increase norvasc to 10 and taking losartan HCTZ 100 mg BP has been improved at home despite being high here. She states at home usually 130/80's. 06/2018 - on losartan 100-25 plus amlodipine an dit is well controlled L ast Assessment & Plan: Hypertension is improving with treatment. Continue current treatment regimen. Dietary sodium restriction. Weight loss. Regular aerobic exercise. Blood pressure will be reassessed in 3 months. Encounters Care Team Description Date Type Specialty Jory Landry MD Pure hypercholesterolemia (Primary Dx); Essential hypertension; Type 2 diabetes mellitus without complication, without long-term current use of insulin (HCC); Acquired hypothyroidism 06/27/2018 Office Visit Internal Medicine Jory Landry MD Type 2 diabetes mellitus without complication, without long-term current use of insulin (HCC) 06/27/2018 Lab Lab Jory Landry MD 04/04/2018 Orders Only Internal Medicine Jory Landry MD Essential hypertension; Abnormal LFTs; Acquired hypothyroidism 04/03/2018 Lab Lab Jory Landry MD Pure hypercholesterolemia (Primary Dx); Essential hypertension; Type 2 diabetes mellitus without complication, without long-term current use of insulin; Acquired hypothyroidism; Vitamin D deficiency; Abnormal LFTs; Ingrown toenail; Need for influenza vaccination 04/03/2018 Office Visit Internal Medicine Jory Landry MD Essential hypertension 01/08/2018 Refill Internal Medicine Jory Landry MD 12/25/2017 Refill Internal Medicine Jory Landry MD Type 2 diabetes mellitus without complication, without long-term current use of insulin; Acquired hypothyroidism 12/24/2017 Orders Only Internal Medicine Jory Landry MD Type 2 diabetes mellitus without complication, without long-term current use of insulin; Annual physical exam 12/21/2017 Lab Lab Jory Landry MD Essential hypertension; Type 2 diabetes mellitus without complication, without long-term current use of insulin; Acquired hypothyroidism 12/21/2017 Office Visit Internal Medicine Jory Landry MD Type 2 diabetes mellitus without complication, without long-term current use of insulin 12/10/2017 Refill Internal Medicine Jory Landry MD Type 2 diabetes mellitus without complication, without long-term current use of insulin; Acquired hypothyroidism 12/04/2017 Refill Internal Medicine after 10/18/2017 Immunizations Name Dates Previously Given Next Due REYMUNDO QUAD PF 04/03/2018 Family History Medical History Relation Name Comments Diabetes Father Heart disease Father Hypertension Mother Lupus Sister Relation Name Status Comments Father Mother Sister Social History Date Tobacco Use Types Packs/Day Years Used Never Smoker Smokeless Tobacco: Never Used Alcohol Use Drinks/Week oz/Week Comments No Sex Assigned at Date Recorded Not on file Industry Job Start Date Occupation Not on file Not on file Not on file Travel End Travel History Travel Start No recent travel history available. Last Filed Vital Signs Time Taken Vital Sign Reading 06/27/2018 9:39 AM PROMOTIONAL ADVERTISING ASSISTANT Blood Pressure 123/88 06/27/2018 9:39 AM PROMOTIONAL ADVERTISING ASSISTANT Pulse 83 - Temperature - 06/27/2018 9:39 AM PROMOTIONAL ADVERTISING ASSISTANT Respiratory Rate 16 06/27/2018 9:39 AM PROMOTIONAL ADVERTISING ASSISTANT Oxygen Saturation 100% - Inhaled Oxygen - Concentration 06/27/2018 9:39 AM PROMOTIONAL ADVERTISING ASSISTANT Weight 96.2 kg (212 lb) 06/27/2018 9:39 AM PROMOTIONAL ADVERTISING ASSISTANT Height 160 cm (5' 3") 06/27/2018 9:39 AM PROMOTIONAL ADVERTISING ASSISTANT Body Mass Index 37.55 Plan of Treatment Health Maintenance Due Date Last Done Comments CERVICAL CANCER SCREENING 1997 INFLUENZA VACCINE 02/06/2019 04/03/2018 DIABETIC FOOT EXAM 06/27/2019 06/27/2018, 06/27/2018 URINE MICROALBUMIN 06/27/2019 06/27/2018, 12/21/2017 DIABETIC RETINAL EYE EXAM 08/22/2019 08/22/2017 Procedures Comments Procedure Name Priority Date/Time Associated Diagnosis MICROALBUMIN / CREATININE Routine 06/27/2018 Type 2 diabetes mellitus URINE RATIO 9:14 AM PROMOTIONAL ADVERTISING ASSISTANT without complication, without long-term current use of insulin (HCC) HEMOGLOBIN A1C Routine 06/27/2018 Type 2 diabetes mellitus 9:14 AM PROMOTIONAL ADVERTISING ASSISTANT without complication, without long-term current use of insulin (HCC) HEMOGLOBIN A1C Routine 04/03/2018 11:03 AM CDT TEST AUTHORIZATION Routine 04/03/2018 11:03 AM CDT T3, FREE Routine 04/03/2018 Acquired hypothyroidism 11:03 AM CDT T4, FREE Routine 04/03/2018 Acquired hypothyroidism 11:03 AM CDT THYROID STIMULATING Routine 04/03/2018 Acquired hypothyroidism HORMONE 11:03 AM CDT CBC WITH PLATELET AND Routine 04/03/2018 Essential hypertension DIFFERENTIAL 11:03 AM CDT COMPREHENSIVE METABOLIC Routine 04/03/2018 Essential hypertension PANEL 11:03 AM CDT Abnormal LFTs VITAMIN B12 AND FOLATE Routine 12/21/2017 Annual physical exam 9:28 AM CDT MICROALBUMIN / CREATININE Routine 12/21/2017 Type 2 diabetes mellitus URINE RATIO 9:28 AM CDT without complication, without long-term current use of insulin VITAMIN D 25 HYDROXY Routine 12/21/2017 Annual physical exam LEVEL 9:28 AM CDT HEMOGLOBIN A1C Routine 12/21/2017 Type 2 diabetes mellitus 9:28 AM CDT without complication, without long-term current use of insulin Annual physical exam LIPID PANEL Routine 12/21/2017 Annual physical exam 9:28 AM CDT T4, FREE Routine 12/21/2017 Annual physical exam 9:28 AM CDT THYROID STIMULATING Routine 12/21/2017 Annual physical exam HORMONE 9:28 AM CDT CBC WITH PLATELET AND Routine 12/21/2017 Annual physical exam DIFFERENTIAL 9:28 AM CDT COMPREHENSIVE METABOLIC Routine 12/21/2017 Type 2 diabetes mellitus PANEL 9:28 AM CDT without complication, without long-term current use of insulin Annual physical exam after 10/18/2017 Results * Microalbumin / creatinine urine ratio (06/27/2018 9:14 AM PROMOTIONAL ADVERTISING ASSISTANT) Only the most recent of 2 results within the time period is included. Creatinine, urine, random 121 20 - 275 mg/dL [facility] Microalbumin, urine 0.7 See Note: mg/dL [facility] Comment: [facility] Reference Range: Reference Range Not established Microalbumin/creatinine 6 <30 mcg/mg creat [facility] ratio Comment: [facility] The ADA defines abnormalities in albumin excretion as follows: Category Result (mcg/mg creatinine) Normal <30 Microalbuminuria 30-299 Clinical albuminuria > UX=[id number] The ADA recommends that at least two of three specimens collected within a 3-6 month period be abnormal before considering a patient to be within a diagnostic category. Specimen Blood Resulting Agency Comment Performing Organization Information: Site ID: [id number] [facility]: [facility] Address: [address] [place] [id number] Director: Anitra Purcell Performing Organization Address City/[facility] Cent[facility]ode Phone Number [facility] [address] [address] * Hemoglobin A1c (06/27/2018 9:14 AM PROMOTIONAL ADVERTISING ASSISTANT) Only the most recent of 3 results within the time period is included. Hemoglobin A1C 8.6 (H) <5.7 % of total Hgb [facility] Comment: [facility] For someone without known diabetes, a hemoglobin A1c value of 6.5% or greater indicates that they may have diabetes and this should be confirmed with a follow-up test. For someone with known diabetes, a value <7% indicates that their diabetes is well controlled and a value greater than or equal to 7% indicates suboptimal control. A1c targets should be individualized based on duration of diabetes, age, comorbid conditions, and other considerations. Currently, no consensus exists regarding use of hemoglobin A1c for diagnosis of diabetes for children. Specimen Blood Resulting Agency Comment Performing Organization Information: Site ID: [id number] Name: [facility] Address: [address] [place] [id number] Director: Anitra Purcell Performing Organization Address [facility] [facility] Centercode Phone Number [place] [place] [address] [address] * TEST AUTHORIZATION (04/03/2018 11:03 AM CDT) TEST(S) ORDERED ON HEMOGLOBIN A1c [facility] [facility] TEST CODE: [id number] [facility] [facility] CLIENT CONTACT: ERIC PATRICIA [facility] [facility] REPORT ALWAYS MESSAGE Comment: [facility] SIGNATURE The laboratory testing on this [facility] patient was verbally requested II or confirmed by the ordering physician or his or her authorized delivery representative after contact with an employee of [employer]. Federal regulations require that we maintain on file written authorization for all laboratory testing.Accordingly we are asking that the ordering physician or his or her authorized delivery representative sign a copy of this report and promptly return it to the client operations manager. Signature: __ (Always message) Comment: [facility] Please fax this signed form to [facility] [phone]. Please do II not attempt to return this document by other methods. Documents will not be viewed by a delivery representative. Please do not use this fax number for other service requests. Resulting Agency Comment Performing Organization Information: Site ID: [id number] Name: [facility] Address: [address] [place] [address] Director: Dr. Shawn Goodson Performing Organization Address City/State/Zipcode Phone Number Z[place] [facility] [address] [facility] [place] [address] II * CBC with platelet and differential (04/03/2018 11:03 AM CDT) Only the most recent of 2 results within the time period is included. WBC 7.9 3.8 - 10.8 Thousand/uL [facility] RBC 4.62 3.80 - 5.10 Million/uL [facility] HGB 11.4 (L) 11.7 - 15.5 g/dL [employer] [facility] HCT 35.8 35.0 - 45.0 % [employer] [facility] MCV 77.5 (L) 80.0 - 100.0 fL [employer] [facility] MCH 24.7 (L) 27.0 - 33.0 pg [employer] [facility] MCHC 31.8 (L) 32.0 - 36.0 g/dL [employer] [facility] RDW 14.1 11.0 - 15.0 % [employer] [facility] Platelet count 328 140 - 400 Thousand/uL [facility] [employer] [place] MPV 10.3 7.5 - 12.5 fL [employer] [facility] Neutrophils, absolute 4,037 1,500 - 7,800 cells/uL [employer] [facility] Lymphocytes, absolute 2,876 850 - 3,900 cells/uL [employer] [facility] Monocytes, absolute 593 200 - 950 cells/uL [employer] [facility] Eosinophils, absolute 348 15 - 500 cells/uL [employer] [facility] Basophils, absolute 47 0 - 200 cells/uL [employer] [facility] Neutrophils 51.1 % [employer] [facility] Lymphocytes 36.4 % [employer] [facility] Monocytes 7.5 % [employer] [facility] Eosinophils 4.4 % [employer] [facility] Basophils + RC 0.6 % [employer] [facility] Specimen Blood Resulting Agency Comment Performing Organization Information: Site ID: [id number] Name: [facility] Address: [address] [place] [id number] Director: Anitra Purcell Performing Organization Address [facility] Phone Number [employer] [address] [address] * T3, free (04/03/2018 11:03 AM CDT) T3, free 2.7 2.3 - 4.2 pg/mL [employer] [facility] Specimen Blood Resulting Agency Comment Performing Organization Information: Site ID: [id number] Name: [facility] Address: [address] [place] [phone] Director: Anitra Purcell Performing Organization Address [facility] Phone Number [employer] [address] [address] * Thyroid stimulating hormone (04/03/2018 11:03 AM CDT) Only the most recent of 2 results within the time period is included. TSH 2.14 mIU/L [employer] Comment: [facility] Reference Range > or=20 Years0.40-4.50 Ranges First trimester0.26-2.66 Second trimester 0.55-2.73 Third trimester0.43-2.91 Specimen Blood Resulting Agency Comment Performing Organization Information: Site ID: [id number] Name: [facility] Address: [address] [place] [phone] Director: Anitra Purcell Performing Organization Address [facility] Phone Number [employer] [address] [address] * T4, free (04/03/2018 11:03 AM CDT) Only the most recent of 2 results within the time period is included. T4, free 1.5 0.8 - 1.8 ng/dL [employer] [facility] Specimen Blood Resulting Agency Comment Performing Organization Information: Site ID: [id number] [facility]: [facility] Address: [address] [place] [phone] Director: Anitra Purcell Performing Organization Address City/[facility] [facility] Centercode Phone Number [employer] [facility] [address] [place] [address] * Comprehensive metabolic panel (04/03/2018 11:03 AM CDT) Only the most recent of 2 results within the time period is included. Glucose 146 (H) 65 - 99 mg/dL [employer] Comment: [facility] Fasting reference interval For someone without known diabetes, a glucose value >125 mg/dL indicates that they may have diabetes and this should be confirmed with a follow-up test. BUN, whole blood 12 7 - 25 mg/dL [facility] Creatinine 0.59 0.50 - 1.10 mg/dL [employer] [facility] EGFR Non-Afr. Bangladeshi 114 > OR=60 mL/min/1.73m2 [employer] [facility] EGFR 132 > OR=60 mL/min/1.73m2 [employer] [facility] BUN/creatinine ratio NOT APPLICABLE 6 - 22 (calc) [facility] Sodium 136 135 - 146 mmol/L [employer] [facility] Potassium 3.7 3.5 - 5.3 mmol/L [employer] [facility] Chloride 101 98 - 110 mmol/L [employer] [facility] CO2 30 20 - 32 mmol/L [employer] [facility] Calcium 8.9 8.6 - 10.2 mg/dL [employer] [facility] Protein 7.3 6.1 - 8.1 g/dL [employer] [facility] Albumin, S 3.9 3.6 - 5.1 g/dL [facility] Globulin, total 3.4 1.9 - 3.7 g/dL (calc) [facility] Albumin/globulin ratio 1.1 1.0 - 2.5 (calc) [employer] [facility] Total bilirubin 0.7 0.2 - 1.2 mg/dL [employer] [facility] Alkaline phosphatase 57 33 - 115 U/L [facility] AST 47 (H) 10 - 30 U/L [employer] [facility] ALT 60 (H) 6 - 29 U/L [employer] [facility] Specimen Blood Resulting Agency Comment Performing Organization Information: Site ID: [id number] Name: [facility] Address: [address] [place] [address] Director: Anitra Purcell Performing Organization Address [facility]/Zipcode Phone Number [employer] [facility] [address] [place] [address] * Vitamin B12 and Folate (12/21/2017 9:28 AM CDT) Vitamin B12 345 200 - 1,100 pg/mL [facility] Comment: [facility] Please Note: Although the reference range for vitamin B12 is 200-1100 pg/mL, it has been reported that between 5 and 10% of patients with values between 200 and 400 pg/mL may experience neuropsychiatric and hematologic abnormalities due to occult B12 deficiency; less than 1% of patients with values above 400 pg/mL will have symptoms. Folate 15.5 ng/mL [facility] Comment: [facility] Reference Range Low: <3.4 Borderline:3.4-5.4 Normal:>5.4 Specimen Blood Resulting Agency Comment Performing Organization Information: Site ID: [id number] Name: [facility] Address: [address] [place] [phone] Director: Anitra Purcell Performing Organization Address [facility] Phone Number [place] [address] * Vitamin D 25 hydroxy level (12/21/2017 9:28 AM CDT) Vitamin D, 25-hydroxy 23 (L) 30 - 100 ng/mL [facility] Comment: [facility] Vitamin D Status 25-OH Vitamin D: Deficiency: <20 ng/mL Insufficiency: 20 - 29 ng/mL Optimal: > or=30 ng/mL For 25-OH Vitamin D testing on patients on D2-supplementation and patients for whom quantitation of D2 and D3 fractions is required, the [employer]Ass[employer](TM) 25-OH VIT D, (D2,D3), LC/MS/MS is recommended: order code 35649 (patients >2yrs). For more information on this test, go to: http://education.Theorem.com/faq/QZE362 (This link is being provided for informational/educational purposes only.) Specimen Blood Resulting Agency Comment Performing Organization Information: Site ID: [id number] Name: [facility] Address: [address] [place] [id number] Director: Anitra Purcell Performing Organization Address [facility] [place] Phone Number [employer] [address] [id number] * Lipid panel (12/21/2017 9:28 AM CDT) Cholesterol, total 182 <200 mg/dL [facility] HDL cholesterol 48 (L) >50 mg/dL [facility] Triglycerides 196 (H) <150 mg/dL [facility] LDL cholesterol 102 (H) mg/dL (calc) [facility] calculated Comment: [facility] Reference range: <100 Desirable range <100 mg/dL for primary prevention; <70 mg/dL for patients with CHD or diabetic patients with > or=2 CHD risk factors. LDL-C is now calculated using the Jaya calculation, which is a validated novel method providing better accuracy than the Friedewald equation in the estimation of LDL-C. Gonzalo HAIR et al. MAYLIN. 2013;310(19): 0874-1952 (http://education.TopOPPS/faq/GGL065) Cholesterol/HDL ratio 3.8 <5.0 (calc) [facility] Non-HDL cholesterol 134 (H) <130 mg/dL (calc) [facility] Comment: [facility] For patients with diabetes plus 1 major ASCVD risk factor, treating to a non-HDL-C goal of <100 mg/dL (LDL-C of <70 mg/dL) is considered a therapeutic option. Specimen Blood Resulting Agency Comment Performing Organization Information: Site ID: [id number] Name: [facility] Address: [address] [place] [id number] Director: Anitra Purcell Performing Organization Address City/State/Zipcode Phone Number [facility] [address] [phone] after 10/18/2017 Insurance Payer Benefit Subscriber ID Type Phone Address Plan / Group [facility] ANTHEM xxxxxxxxxxxx PPO [facility] xxxxxxxxxxxx PPO CHOICE PPO/[place] EMPL PPO Advance Directives Patient has advance care planning documents on file. For more information, reba palma contact: Shaw Rhodes [phone] [place] [address]
[2018-10-19] MEDS ORDERED: FAMOTIDINE 20 MG/2 ML VIAL IV ONE (01:30)
[2018-10-19] MEDS ORDERED: ALBUTEROL/IPRATROPIUM 3 ML NEB NEB ONE (01:30)
[2018-10-19] MEDS ORDERED: METHYLPREDNISOLONE SOD SUCC 125 MG/2ML VIAL IV ONE (01:30)
[2018-10-19] MEDS ORDERED: DIPHENHYDRAMINE HCL INJ 50 MG/ML VIAL IV ONE (01:30)
[2018-10-19] MEDS ORDERED: INSULIN REGULAR, HUMAN 100 UNIT/1 ML 3ML VIAL SQ ONE (02:45)
[2018-10-19 03:18] VITALS: BP 114/76
[2018-10-19] MEDS ORDERED: SODIUM CHLORIDE 0.9% 1000ML 1,000 ML IV STA (19:29)
== END 2018-10-19 03:17 | disposition home or self-care (01) ==
LOC: FSED 01:20
DX: T78.02XA Anaphylactic reaction due to shellfish (crustaceans), initial encounter (principal); T61.784A Other shellfish poisoning, undetermined, initial encounter; R06.02 Shortness of breath; J98.01 Acute bronchospasm; I10 Essential (primary) hypertension; E11.9 Type 2 diabetes mellitus without complications
CPT/HCPCS: 80053; 85025; 96372; 96374; 96375; 99284; J2930